=== PATIENT | male | born 1960 | race Caucasian/White ===

== ENCOUNTER 2023-05-13 08:15 | Observation (INO) | payer BC ==
[2023-05-07 09:49] LABS: Absolute Lymphocytes (CBC) 1.4 K/uL (0.7-4.9); Hematocrit 39.6 % (39.6-49.0); Lymphocytes % 18.3 % (15.3-44.8); MCV 90.1 fL (80-100); MPV 9.1 fL (7.6-11.3); Platelets 242 thou/uL (152-406)
[2023-05-07 10:03] LABS: Protime INR 0.94
--- NOTE | 2023-05-07 10:06 | RAD REPORT ---
EXAM DESCRIPTION: RAD - Chest Pa And Lat (2 Views) - 05/07/2023 9:54 am CLINICAL HISTORY: pre op for surgery. Hypertension COMPARISON: No comparisons TECHNIQUE: PA and lateral views of the chest were obtained. FINDINGS: The lungs are clear. Heart size is normal and central vasculature is within normal limits. No pleural effusion or pneumothorax seen. No acute bony finding noted. IMPRESSION: No acute cardiopulmonary process.
[2023-05-07 10:23] LABS: Potassium 3.9 mEq/L (3.5-5.1)
--- NOTE | 2023-05-07 12:27 | EKG ---
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
[2023-05-13] MEDS ORDERED: NA CHLORIDE 0.9% 1,000 ML ONE (08:48)
[2023-05-13] MEDS ORDERED: CEFAZOLIN SODIUM 2 GM/VIAL ONE (08:48)
[2023-05-13] MEDS ORDERED: CELECOXIB 100 MG CAPSULE ONE (09:09)
[2023-05-13] MEDS ORDERED: Oxycodone HCl/Acetaminophen 5/325 MG TAB ONE (09:10)
[2023-05-13] MEDS ORDERED: GABAPENTIN 100 MG CAP ONE (09:10)
[2023-05-13] MEDS ORDERED: ACETAMINOPHEN 500 MG TAB ONE (09:11)
[2023-05-13] MEDS ORDERED: LIDOCAINE 1% MPF 5 ML VIAL ONE (09:56)
[2023-05-13] MEDS ORDERED: MAGNESIUM SULFATE 1 gm IVPB 1 GM/100 ML BAG IV ONE (09:57)
[2023-05-13] MEDS ORDERED: MIDAZOLAM HCL 2 MG/2 ML INJ ONE (09:57)
[2023-05-13] MEDS ORDERED: FENTANYL CITR 100 MCG/2 ML ONE (09:57)
[2023-05-13] MEDS ORDERED: dexAMETHasone 10 MG/ML VIAL ONE (09:57)
[2023-05-13] MEDS ORDERED: BUPIVACAINE 0.25% PF 30 ML VIAL ONE (09:57)
[2023-05-13] MEDS ORDERED: DEXMEDETOMIDINE HCL 200 MCG/2 ML VIAL ONE (09:57)
[2023-05-13] MEDS ORDERED: EPINEPHRINE/PF 1 MG/ML AMP ONE (09:57)
[2023-05-13] MEDS ORDERED: LIDOCAINE 2% MPF 5 ML VIAL ONE (10:53)
[2023-05-13] MEDS ORDERED: KETAMINE HCL IN 0.9 % NACL 50 MG/5 ML SYRINGE IV ONE (10:53)
[2023-05-13] MEDS ORDERED: propofoL 200 MG/20 ML VIAL IV ONE (10:53)
[2023-05-13] MEDS ORDERED: TRANEXAMIC ACID 1,000 MG/10 ML VIAL IV ONE (10:54)
[2023-05-13] MEDS ORDERED: ONDANSETRON 4 MG/2 ML VIAL ONE (10:55)
[2023-05-13] MEDS ORDERED: EPHEDRINE SULF 50 MG/ML VIAL ONE (11:40)
[2023-05-13] MEDS ORDERED: Ringers Lactate 1,000 ML IV ONE (13:24)
--- NOTE | 2023-05-13 13:53 | P.BOP ---
Preoperative diagnosis: left knee osteoarthritis Postoperative diagnosis: same Primary procedure: left total knee arthroplasty Certified Alcohol And Drug Counselor: NONE,NONE Estimated blood loss: 40 cc Specimen: left knee bone remnants Findings: see dictation Anesthesia: General Complications: None Implants: [employer] Carmen Persona 10 CR femur, G tibia, 38 patella, 10 CR poly Fluids & blood products: per anesthesia record Transferred to: Recovery Room Condition: Good
[2023-05-13] MEDS ORDERED: ONDANSETRON 4 MG/2 ML VIAL IV PRN (13:54)
[2023-05-13] MEDS ORDERED: ACETAMINOPHEN 325 MG TABLET PO PRN (13:54)
[2023-05-13] MEDS ORDERED: DOCUSATE NA 100 MG CAP PO PRN (13:54)
[2023-05-13] MEDS ORDERED: TRAMADOL HCL 50 MG TAB PO PRN (13:58)
[2023-05-13] MEDS: HYDROMORPHONE HCL 1 MG/ML INJ ONE ×2 (14:20→14:34)
[2023-05-13 14:41] LABS: Hematocrit 36.3 % (39.6-49.0)
--- OUTSIDE RECORDS SUMMARY | 2023-05-13 15:13 | XMS REPORT | Continuity of Care Document ---
:1960 Author Organization [facility] t Address [address] [facility] [address] [place] [address] Care Team Providers Name Role Phone Susan John Primary Care Physician DUYEN STUBBS Attending Clinician Unavailable Enoc BALDWIN, Duyen GuillenHDipak Attending Clinician Doctor Unassigned, [place] Attending Clinician Unavailable ANNAMARIA BATISTA Attending Clinician Unavailable Payers Payer Name Policy Type Policy Number Effective Date Expiration Date S javiernunu [employer] [place] [id number] 2019 00:00:00 [employer] and C1 [id number] Common S pirit [facility] Problems Condition Condition Condition Status Onset Resolution Last Treating Co mments Source Name Details Category Date Date Treatment Clinician Date Essential Essential Disease Active 2022-0 Uni vers hypertensi hypertensi 2-18 [place] [address] [place] [address] Dyslipidem Dyslipidem Disease Active U nivers ia ia 2-18 ity of 00:00: [address] [id number] Primary Problem Active Comm on osteoarthr Spirit itis of - [facility] left knee [facility] Allergies, Adverse Reactions, Alerts Allergy Allergy Status Severity Reaction(s) Onset Inactive Treating Comm ents Source Name Type Date Date Clinician NO KNOWN Drug Active Univers ALLERGIE Class ity of S [facility] Social History Social Habit Start Date Stop Date Quantity Comments Source Gender identity Universit y [facility] Sexual orientation Univer sity [facility] Sex Assigned At Common Sp renuka - [facility] History of Tobacco Never Smoker Comm on Spirit - Use [facility] Exposure to 2022-09-20 2022-09-30 Not sure University SARS-CoV-2 (event) 00:00:00 09:15:00 [facility] History of Social 2022-09-30 2022-09-30 Univers ity of function 00:00:00 00:00:00 [facility] Tobacco use and 2022-09-30 2022-09-30 Smokeless Universit y of exposure 00:00:00 00:00:00 tobacco non-user [facility] Smoking Status Start Date Stop Date Source Never smoked tobacco [facility] Medications Ordered Filled Start Stop Current Ordering Indication Dosage Frequency Signature Comments Components Source Medication Medication Date Date Medication? Clinician (SIG) Name Name regadenoson 2022- No [id number] .4mg 0.4 mg, IV Univers (LEXISCAN) 01-29 Push, ity of injection 15:15: 14:46 ONCE, 1 [place] 0.4 mg 00 :00 dose, On Medical Coco 01/29/23 Branch at 1015, Routine
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 Restricted medication : DUYEN STUBBS tc 2022- No [id number] 42.4mCi 42.4 [facility] 99m-tetrofo 01-29 millicurie i ty of smin 14:50: 14:50 , [place] (MYOVIEW) 00 :00 Intravenou Medi sunshine injection s, ONCE, 1 Bran ch 42.4 dose, On millicurie Coco 01/29/23 at 1000, Routine tc 3-0 3- No [id number] 15.6mCi 15.6 Univ s 99m-tetrofo 01-29 millicurie i ty of [facility] 13:45: 13:45 , [place] (MYOVIEW) 00 :00 Intravenou Medi sunshine injection s, ONCE, 1 Bran ch 15.6 dose, On millicurie Coco 01/29/23 at 0900, Routine lisinopriL 2023-0 Yes [id number] 40mg Take 1 Univers 40 mg 3-08 tablet by ity of tablet 00:00: mouth in [place] 00 the Medical morning. Branch lisinopriL 2023-0 Yes [id number] 40mg Take 1 Univers 40 mg 3-08 tablet by ity of tablet 00:00: mouth in [place] 00 the Medical morning. Branch lisinopriL 2023-0 Yes [id number] 40mg Take 1 Univers 40 mg 3-08 tablet by ity of tablet 00:00: mouth in [place] 00 the Medical morning. Branch lisinopriL 2023-0 Yes [id number] 40mg Take 1 Univers 40 mg 3-08 tablet by ity of tablet 00:00: mouth in [place] the Medical morning. Branch lisinopriL 2023-0 Yes [id number] 40mg Take 1 Univers 40 mg 3-08 tablet by ity of tablet 00:00: mouth in [place] 00 the Medical morning. Branch lisinopriL 2023-0 Yes [id number] 40mg Take 1 Univers 40 mg 3-08 tablet by ity of tablet 00:00: mouth in [place] 00 the Medical morning. Branch lisinopriL 2023-0 Yes [id number] 40mg Take 1 Univers 40 mg 3-08 tablet by ity of tablet 00:00: mouth in [place] 00 the Medical morning. Branch lisinopriL 2023-0 Yes [id number] 40mg Take 1 Univers 40 mg 3-08 tablet by ity of tablet 00:00: mouth in [place] 00 the Medical morning. Branch lisinopriL 2023-0 Yes [id number] 40mg Take 1 Univers 40 mg 3-08 tablet by ity of tablet 00:00: mouth in [place] 00 the Medical morning. Branch lisinopriL 2023-0 Yes [id number] 40mg Take 1 Univers 40 mg 3-08 tablet by ity of tablet 00:00: mouth in [place] 00 the Medical morning. Branch lisinopriL 2023-0 Yes [id number] 40mg Take 1 Univers 40 mg 3-08 tablet by ity of tablet 00:00: mouth in [place] 00 the Medical morning. Branch meloxicam 2023-0 Yes 7.5mg Take 1 Unive rs (MOBIC) 7.5 3-07 tablet by ity of mg tablet 10:07: mouth in [place] [address] the Medical morning. Branch meloxicam 2023-0 Yes 7.5mg Take 1 Unive rs (MOBIC) 7.5 3-07 tablet by ity of mg tablet 10:07: mouth in [place] [address] the Medical morning. Branch meloxicam 2023-0 Yes 7.5mg Take 1 Unive rs (MOBIC) 7.5 3-07 tablet by ity of mg tablet 10:07: mouth in [place] [address] the Medical morning. Branch meloxicam 2023-0 Yes 7.5mg Take 1 Unive rs (MOBIC) 7.5 3-07 tablet by ity of mg tablet 10:07: mouth in [place] [address] the Medical morning. Branch meloxicam 2023-0 Yes 7.5mg Take 1 Unive rs (MOBIC) 7.5 3-07 tablet by ity of mg tablet 10:07: mouth in [place] [address] the Medical morning. Branch meloxicam 2023-0 Yes 7.5mg Take 1 Unive rs (MOBIC) 7.5 3-07 tablet by ity of mg tablet 10:07: mouth in [place] [address] the Medical morning. Branch meloxicam 2023-0 Yes 7.5mg Take 1 Unive rs (MOBIC) 7.5 3-07 tablet by ity of mg tablet 10:07: mouth in [place] [address] the Medical morning. Branch meloxicam 2023-0 Yes 7.5mg Take 1 Unive rs (MOBIC) 7.5 3-07 tablet by ity of mg tablet 10:07: mouth in [place] [address] the Medical morning. Branch meloxicam 2023-0 Yes 7.5mg Take 1 Unive rs (MOBIC) 7.5 3-07 tablet by ity of mg tablet 10:07: mouth in [place] [address] the Medical morning. Branch meloxicam 2023-0 Yes 7.5mg Take 1 Unive rs (MOBIC) 7.5 3-07 tablet by ity of mg tablet 10:07: mouth in [place] [address] the Medical morning. Branch meloxicam 2023-0 Yes 7.5mg Take 1 Unive rs (MOBIC) 7.5 3-07 tablet by ity of mg tablet 10:07: mouth in [place] [address] the Medical morning. Branch meloxicam 2023-0 Yes 7.5mg Take 1 Unive rs (MOBIC) 7.5 3-07 tablet by ity of mg tablet 10:07: mouth in [place] [address] the Medical morning. Branch meloxicam 2023-0 Yes 7.5mg Take 1 Unive rs (MOBIC) 7.5 3-07 tablet by ity of mg tablet 10:07: mouth in [place] [address] the Medical morning. Branch meloxicam 2023-0 Yes 7.5mg Take 1 Unive rs (MOBIC) 7.5 3-07 tablet by ity of mg tablet 10:07: mouth in [place] [address] the Medical morning. Branch metFORMIN 2023-0 Yes 500mg Take 500 Uni vers 500 mg 3-07 mg by ity of tablet 09:58: mouth 2 [place] [address] (two) Medical times Branch daily with meals. metFORMIN 2023-0 Yes 500mg Take 500 Uni vers 500 mg 3-07 mg by ity of tablet 09:58: mouth 2 [place] [address] (two) Medical times Branch daily with meals. metFORMIN 2023-0 Yes 500mg Take 500 Uni vers 500 mg 3-07 mg by ity of tablet 09:58: mouth 2 [place] [address] (two) Medical times Branch daily with meals. metFORMIN 2023-0 Yes 500mg Take 500 Uni vers 500 mg 3-07 mg by ity of tablet 09:58: mouth 2 [place] [address] (two) Medical times Branch daily with meals. metFORMIN 2023-0 Yes 500mg Take 500 Uni vers 500 mg 3-07 mg by ity of tablet 09:58: mouth 2 [place] 48 (two) Medical times Branch daily with meals. metFORMIN 2023-0 Yes 500mg Take 500 Uni vers 500 mg 3-07 mg by ity of tablet 09:58: mouth 2 [place] [address] (two) Medical times Branch daily with meals. metFORMIN 2023-0 Yes 500mg Take 500 Uni vers 500 mg 3-07 mg by ity of tablet 09:58: mouth 2 [place] [address] (two) Medical times Branch daily with meals. metFORMIN 2023-0 Yes 500mg Take 500 Uni vers 500 mg 3-07 mg by ity of tablet 09:58: mouth 2 [place] [address] (two) Medical times Branch daily with meals. metFORMIN 2023-0 Yes 500mg Take 500 Uni vers 500 mg 3-07 mg by ity of tablet 09:58: mouth 2 [place] [address] (two) Medical times Branch daily with meals. metFORMIN 2023-0 Yes 500mg Take 500 Uni vers 500 mg 3-07 mg by ity of tablet 09:58: mouth 2 [place] [address] (two) Medical times Branch daily with meals. metFORMIN 2023-0 Yes 500mg Take 500 Uni vers 500 mg 3-07 mg by ity of tablet 09:58: mouth 2 [place] [address] (two) Medical times Branch daily with meals. metFORMIN 2023-0 Yes 500mg Take 500 Uni vers 500 mg 3-07 mg by ity of tablet 09:58: mouth 2 [place] [address] (two) Medical times Branch daily with meals. metFORMIN 2023-0 Yes 500mg Take 500 Uni vers 500 mg 3-07 mg by ity of tablet 09:58: mouth 2 [place] [address] (two) Medical times Branch daily with meals. metFORMIN 2023-0 Yes 500mg Take 500 Uni vers 500 mg 3-07 mg by ity of tablet 09:58: mouth 2 [place] [address] (two) Medical times Branch daily with meals. atorvastati 2023-0 Yes 10mg Take 10 mg Univers n 10 mg 3-07 by mouth ity of tablet 09:39: at [place] [address] bedtime. Medical Branch atorvastati 2023-0 Yes 10mg Take 10 mg Univers n 10 mg 3-07 by mouth ity of tablet 09:39: at [place] [address] bedtime. Medical Branch atorvastati 2023-0 Yes 10mg Take 10 mg Univers n 10 mg 3-07 by mouth ity of tablet 09:39: at [place] [address] bedtime. Medical Branch atorvastati 2023-0 Yes 10mg Take 10 mg Univers n 10 mg 3-07 by mouth ity of tablet 09:39: at [place] [address] bedtime. Medical Branch atorvastati 3-0 Yes 10mg Take 10 mg Univers n 10 mg 3-07 by mouth ity of tablet 09:39: at [place] [address] bedtime. Medical Branch atorvastati 3-0 Yes 10mg Take 10 mg Univers n 10 mg 3-07 by mouth ity of tablet 09:39: at [place] [address] bedtime. Medical Branch atorvastati 3-0 Yes 10mg Take 10 mg Univers n 10 mg 3-07 by mouth ity of tablet 09:39: at [place] [address] bedtime. Medical Branch atorvastati 3-0 Yes 10mg Take 10 mg Univers n 10 mg 3-07 by mouth ity of tablet 09:39: at [place] [address] bedtime. Medical Branch atorvastati 3-0 Yes 10mg Take 10 mg Univers n 10 mg 3-07 by mouth ity of tablet 09:39: at [place] [address] bedtime. Medical Branch atorvastati 3-0 Yes 10mg Take 10 mg Univers n 10 mg 3-07 by mouth ity of tablet 09:39: at [place] [address] bedtime. Medical Branch atorvastati 3-0 Yes 10mg Take 10 mg Univers n 10 mg 3-07 by mouth ity of tablet 09:39: at [place] [address] bedtime. Medical Branch atorvastati 3-0 Yes 10mg Take 10 mg Univers n 10 mg 3-07 by mouth ity of tablet 09:39: at [place] [address] bedtime. Medical Branch atorvastati 3-0 Yes 10mg Take 10 mg Univers n 10 mg 3-07 by mouth ity of tablet 09:39: at [place] [address] bedtime. Medical Branch atorvastati 3-0 Yes 10mg Take 10 mg Univers n 10 mg 3-07 by mouth ity of tablet 09:39: at [place] [address] bedtime. Medical Branch aspirin 2023-0 Yes 81mg Take 81 mg Univ ers (ADULT LOW 3-07 by mouth ity o f DOSE 09:39: daily. [place] ASPIRIN) 81 19 Medical mg EC Branch tablet aspirin 3-0 Yes 81mg Take 81 mg Univ ers (ADULT LOW 3-07 by mouth ity o f DOSE 09:39: daily. [place] ASPIRIN) 81 19 Medical mg EC Branch tablet aspirin 3-0 Yes 81mg Take 81 mg Univ ers (ADULT LOW 3-07 by mouth ity o f DOSE 09:39: daily. [place] ASPIRIN) 81 19 Medical mg EC Branch tablet aspirin 2023-0 Yes 81mg Take 81 mg Univ ers (ADULT LOW 3-07 by mouth ity o f DOSE 09:39: daily. [place] ASPIRIN) 81 19 Medical mg EC Branch tablet aspirin 2023-0 Yes 81mg Take 81 mg Univ ers (ADULT LOW 3-07 by mouth ity o f DOSE 09:39: daily. [place] ASPIRIN) 81 19 Medical mg EC Branch tablet aspirin 2023-0 Yes 81mg Take 81 mg Univ ers (ADULT LOW 3-07 by mouth ity o f DOSE 09:39: daily. [place] ASPIRIN) 81 19 Medical mg EC Branch tablet aspirin 2023-0 Yes 81mg Take 81 mg Univ ers (ADULT LOW 3-07 by mouth ity o f DOSE 09:39: daily. [place] ASPIRIN) 81 19 Medical mg EC Branch tablet aspirin 2023-0 Yes 81mg Take 81 mg Univ ers (ADULT LOW 3-07 by mouth ity o f DOSE 09:39: daily. [place] ASPIRIN) 81 19 Medical mg EC Branch tablet aspirin 2023-0 Yes 81mg Take 81 mg Univ ers (ADULT LOW 3-07 by mouth ity o f DOSE 09:39: daily. [place] ASPIRIN) 81 19 Medical mg EC Branch tablet aspirin 2023-0 Yes 81mg Take 81 mg Univ ers (ADULT LOW 3-07 by mouth ity o f DOSE 09:39: daily. [place] ASPIRIN) 81 19 Medical mg EC Branch tablet aspirin 2023-0 Yes 81mg Take 81 mg Univ ers (ADULT LOW 3-07 by mouth ity o f DOSE 09:39: daily. [place] ASPIRIN) 81 19 Medical mg EC Branch tablet aspirin 2023-0 Yes 81mg Take 81 mg Univ ers (ADULT LOW 3-07 by mouth ity o f DOSE 09:39: daily. [place] ASPIRIN) 81 19 Medical mg EC Branch tablet aspirin 2023-0 Yes 81mg Take 81 mg Univ ers (ADULT LOW 3-07 by mouth ity o f DOSE 09:39: daily. [place] ASPIRIN) 81 19 Medical mg EC Branch tablet aspirin 2023-0 Yes 81mg Take 81 mg Univ ers (ADULT LOW 3-07 by mouth ity o f DOSE 09:39: daily. [place] ASPIRIN) 81 19 Medical mg EC Branch tablet lisinopriL 2023-0 Yes [id number] 20mg Take 1 Univers (PRINIVIL) 3-07 tablet by ity of 20 mg 00:00: mouth in [place] tablet 00 the Medical morning Branch and 1 tablet in the evening. lisinopriL 2023-0 Yes [id number] 20mg Take 1 Univers (PRINIVIL) 3-07 tablet by ity of 20 mg 00:00: mouth in [place] tablet 00 the Medical morning Branch and 1 tablet in the evening. lisinopriL 2023-0 2023- No [id number] 20mg Take 1 Univers (PRINIVIL) 3-01 26-08 tablet by ity of 20 mg 00:00: 00:00 mouth in [place] tablet 00 :00 the Medical morning Branch and 1 tablet in the evening. lisinopriL 2023-0 2023- No [id number] 20mg Take 1 Univers (PRINIVIL) 3-01 26-08 tablet by ity of 20 mg 00:00: 00:00 mouth in [place] tablet 00 :00 the Medical morning Branch and 1 tablet in the evening. lisinopriL 2022-0 Yes [id number] 40mg Take 1 U nivers 40 mg 7-26 tablet by ity of tablet 00:00: mouth in [place] 00 the Medical morning. Branch lisinopriL 2022-0 Yes 20mg Take 1 Unive rs (PRINIVIL) 7-26 tablet by ity of 20 mg 00:00: mouth in [place] tablet 00 the Medical morning. Branch lisinopriL 2022-0 Yes 20mg Take 1 Unive rs (PRINIVIL) 7-26 tablet by ity of 20 mg 00:00: mouth in [place] tablet 00 the Medical morning. Branch lisinopriL 2022-0 Yes 20mg Take 1 Unive rs (PRINIVIL) 7-26 tablet by ity of 20 mg 00:00: mouth in [place] tablet 00 the Medical morning. Branch lisinopriL 2022-0 2023- No 20mg Take 1 Univ ers (PRINIVIL) 7- 03-07 tablet by ity of 20 mg 00:00: 00:00 mouth in [place] tablet 00 :00 the Medical morning. Branch lisinopriL 2022-0 2023- No 20mg Take 1 Univ ers (PRINIVIL) 7-26 03-07 tablet by ity of 20 mg 00:00: 00:00 mouth in [place] tablet 00 :00 the Medical morning. Branch lisinopriL 2022- No 20mg Take 1 Univ ers (PRINIVIL) 02-18- tablet by ity of 20 mg 00:00: 00:00 mouth in [place] tablet 00 :00 the Medical morning. Branch lisinopriL 2021- No [id number] 40mg Take 1 Univers 40 mg 02-18 tablet by ity of tablet 00:00: 00:00 mouth in [place] 00 :00 the Medical morning. Branch lisinopriL Yes [id number] 20mg Take 1 U nivers 20 mg - tablet by ity of tablet 00:00: mouth 2 [place] [address] (two) Medical times [place] daily. lisinopriL 2021- No [id number] 20mg Take 1 Univers 20 mg -02-18 tablet by ity of tablet 00:00: 00:00 mouth 2 [place] 00 :00 (two) Medical times [place] daily. LISINOPRIL 0 Yes [id number] TAKE 1 U nivers 20 mg - TABLET BY ity of tablet 00:00: MOUTH [place] [address] TWICE A Medical DAY Branch LISINOPRIL 2021- No [id number] TAKE 1 Univers 20 mg 4-14 11- TABLET BY ity of tablet 00:00: 00:00 MOUTH [place] 00 :00 TWICE A Medical DAY Branch SERTraline 0 Yes 50mg Take 50 mg U nivers 50 mg 3-07 by mouth ity of tablet 09:29: daily. [address] montelukast 2021-0 Yes 10mg Take 10 mg Univers 10 mg 3-07 by mouth ity of tablet 09:29: daily. [address] Branch busPIRone 0 Yes 10mg Take 10 mg Un jose carlos 10 mg 3-07 by mouth ity of tablet 09:29: as needed. [address] Branch levothyroxi 0 Yes 100ug Take 100 U nivers ne 100 mcg 3-07 mcg by ity of tablet 09:29: mouth [place] [address] daily. Medical Branch metFORMIN 2021-0 Yes 500mg Take 500 Uni vers 500 mg 3-07 mg by ity of tablet 09:29: mouth 2 [place] [address] (two) Medical times [place] daily with meals. aspirin 2022-0 Yes 81mg Take 81 mg Univ ers (ADULT LOW 3-07 by mouth ity o f DOSE 09:29: daily. [place] ASPIRIN) 81 11 Medical mg EC Branch tablet mv-mn/iron/ Yes 50ug Take 50 Uni vers folic 3-07 mcg by ity of acid/herb 09:29: mouth 2 [place] [address] (two) Medical (VITAMIN D3 times Branch COMPLETE daily. ORAL) multivit Yes Take by Univer s with 3-07 mouth ity of minerals/deborah 09:29: daily. [place] 11 Medical (MULTIVITAM Branch IN 50 PLUS ORAL) gluc Yes Take by [facility] villareal/chondro 3-07 mouth 2 ity of villareal A/vit 09:29: (two) [place] C/Mn 11 times Medical (GLUCOSAMIN daily. Branch E 1500 COMPLEX ORAL) SERTraline Yes 50mg Take 50 mg U nivers 50 mg 3-07 by mouth ity of tablet 09:29: daily. [address] Branch montelukast Yes 10mg Take 10 mg Univers 10 mg 3-07 by mouth ity of tablet 09:29: daily. [address] Branch busPIRone Yes 10mg Take 10 mg Un jose carlos 10 mg 3-07 by mouth ity of tablet 09:29: as needed. [place] [address] Medical Branch levothyroxi Yes 100ug Take 100 U nivers ne 100 mcg 3-07 mcg by ity of tablet 09:29: mouth [place] [address] daily. Medical Branch metFORMIN Yes 500mg Take 500 Uni vers 500 mg 3-07 mg by ity of tablet 09:29: mouth 2 [place] 11 (two) Medical times Branch daily with meals. aspirin Yes 81mg Take 81 mg Univ ers (ADULT LOW 3-07 by mouth ity o f DOSE 09:29: daily. [place] ASPIRIN) 81 11 Medical mg EC Branch tablet mv-mn/iron/ Yes 50ug Take 50 Uni vers folic 3-07 mcg by ity of acid/herb 09:29: mouth 2 [place] [address] (two) Medical (VITAMIN D3 times Branch COMPLETE daily. ORAL) multivit 0 Yes Take by Univer s with 3-07 mouth ity of minerals/deborah 09:29: daily. [place] 11 Medical (MULTIVITAM Branch IN 50 PLUS ORAL) gluc 0 Yes Take by Univers villareal/chondro 3-07 mouth 2 ity of villareal A/vit 09:29: (two) [place] C/Mn 11 times Medical (GLUCOSAMIN daily. Branch E 1500 COMPLEX ORAL) SERTraline 0 Yes 50mg Take 50 mg U nivers 50 mg 3-07 by mouth ity of tablet 09:29: daily. [place] [address] Medical Branch montelukast 0 Yes 10mg Take 10 mg Univers 10 mg 3-07 by mouth ity of tablet 09:29: daily. [place] [address] Medical Branch busPIRone 0 Yes 10mg Take 10 mg Un jose carlos 10 mg 3-07 by mouth ity of tablet 09:29: as needed. [place] [address] Medical Branch levothyroxi 0 Yes 100ug Take 100 U nivers ne 100 mcg 3-07 mcg by ity of tablet 09:29: mouth [place] [address] daily. Medical Branch metFORMIN 0 Yes 500mg Take 500 Uni vers 500 mg 3-07 mg by ity of tablet 09:29: mouth 2 [place] [address] (two) Medical times Branch daily with meals. aspirin 0 Yes 81mg Take 81 mg Univ ers (ADULT LOW 3-07 by mouth ity o f DOSE 09:29: daily. [place] ASPIRIN) 81 11 Medical mg EC Branch tablet mv-mn/iron/ Yes 50ug Take 50 Uni vers folic 3-07 mcg by ity of acid/herb 09:29: mouth 2 [place] [address] (two) Medical (VITAMIN D3 times Branch COMPLETE daily. ORAL) multivit 0 Yes Take by Univer s with 3-07 mouth ity of minerals/deborah 09:29: [facility] Medical (MULTIVITAM Branch IN 50 PLUS ORAL) gluc 0 Yes Take by Univers villareal/chondro 3-07 mouth 2 ity of villareal A/vit 09:29: (two) [place] C/Mn 11 times Medical (GLUCOSAMIN daily. Branch E 1500 COMPLEX ORAL) SERTraline 0 Yes 50mg Take 50 mg U nivers 50 mg 3-07 by mouth ity of tablet 09:29: daily. [place] [address] Medical Branch montelukast 0 Yes 10mg Take 10 mg Univers 10 mg 3-07 by mouth ity of tablet 09:29: daily. [place] [address] Medical Branch busPIRone 0 Yes 10mg Take 10 mg Un jose carlos 10 mg 3-07 by mouth ity of tablet 09:29: as needed. [place] [address] Medical Branch levothyroxi 0 Yes 100ug Take 100 U nivers ne 100 mcg 3-07 mcg by ity of tablet 09:29: mouth [place] [address] daily. Medical Branch metFORMIN 0 Yes 500mg Take 500 Uni vers 500 mg 3-07 mg by ity of tablet 09:29: mouth 2 [place] 11 (two) Medical times Branch daily with meals. aspirin 0 Yes 81mg Take 81 mg Univ ers (ADULT LOW 3-07 by mouth ity o f DOSE 09:29: daily. [place] ASPIRIN) 81 11 Medical mg EC Branch tablet mv-mn/iron/ Yes 50ug Take 50 Uni vers folic 3-07 mcg by ity of acid/herb 09:29: mouth 2 [place] [address] (two) Medical (VITAMIN D3 times Branch COMPLETE daily. ORAL) multivit Yes Take by Univer s with 3-07 mouth ity of minerals/deborah 09:29: [facility]. [facility] Medical (MULTIVITAM Branch IN 50 PLUS ORAL) gluc Yes Take by Univers villareal/chondro 3-07 mouth 2 ity of villareal A/vit 09:29: (two) [place] C/Mn 11 times Medical (GLUCOSAMIN daily. Branch E 1500 COMPLEX ORAL) SERTraline 0 Yes 50mg Take 50 mg U nivers 50 mg 3-07 by mouth ity of tablet 09:29: daily. [place] [address] Medical Branch montelukast Yes 10mg Take 10 mg Univers 10 mg 3-07 by mouth ity of tablet 09:29: daily. [place] [address] Medical Branch busPIRone 0 Yes 10mg Take 10 mg Un jose carlos 10 mg 3-07 by mouth ity of tablet 09:29: as needed. [place] [address] Medical Branch levothyroxi 0 Yes 100ug Take 100 U nivers ne 100 mcg 3-07 mcg by ity of tablet 09:29: mouth [place] [address] daily. Medical Branch metFORMIN 0 Yes 500mg Take 500 Uni vers 500 mg 3-07 mg by ity of tablet 09:29: mouth 2 [place] 11 (two) Medical times Branch daily with meals. aspirin 0 Yes 81mg Take 81 mg Univ ers (ADULT LOW 3-07 by mouth ity o f DOSE 09:29: daily. [place] ASPIRIN) 81 11 Medical mg EC Branch tablet mv-mn/iron/ Yes 50ug Take 50 Uni vers folic 3-07 mcg by ity of acid/herb 09:29: mouth 2 [place] [address] (two) Medical (VITAMIN D3 times Branch COMPLETE daily. ORAL) multivit 0 Yes Take by Univer s with 3-07 mouth ity of minerals/deborah 09:29: [facility]. [facility] Medical (MULTIVITAM Branch IN 50 PLUS ORAL) gluc Yes Take by Univers villareal/chondro 3-07 mouth 2 ity of villareal A/vit 09:29: (two) [place] C/Mn 11 times Medical (GLUCOSAMIN daily. Branch E 1500 COMPLEX ORAL) SERTraline 0 Yes 50mg Take 50 mg U nivers 50 mg 3-07 by mouth ity of tablet 09:29: daily. [place] [address] Medical Branch montelukast Yes 10mg Take 10 mg Univers 10 mg 3-07 by mouth ity of tablet 09:29: daily. [place] [address] Medical Branch busPIRone 0 Yes 10mg Take 10 mg Un jose carlos 10 mg 3-07 by mouth ity of tablet 09:29: as needed. [place] [address] Medical Branch levothyroxi Yes 100ug Take 100 U nivers ne 100 mcg 3-07 mcg by ity of tablet 09:29: mouth [place] [address] daily. Medical Branch metFORMIN 0 Yes 500mg Take 500 Uni vers 500 mg 3-07 mg by ity of tablet 09:29: mouth 2 [place] 11 (two) Medical times Branch daily with meals. aspirin 0 Yes 81mg Take 81 mg Univ ers (ADULT LOW 3-07 by mouth ity o f DOSE 09:29: daily. [place] ASPIRIN) 81 11 Medical mg EC Branch tablet mv-mn/iron/ 0 Yes 50ug Take 50 Uni vers folic 3-07 mcg by ity of acid/herb 09:29: mouth 2 [place] [address] (two) Medical (VITAMIN D3 times Branch COMPLETE daily. ORAL) multivit 2022-0 Yes Take by Univer s with 3-07 mouth ity of minerals/deborah 09:29: daily. [place] 11 Medical (MULTIVITAM Branch IN 50 PLUS ORAL) gluc 0 Yes Take by Univers villareal/chondro 3-07 mouth 2 ity of villareal A/vit 09:29: (two) [place] C/Mn 11 times Medical (GLUCOSAMIN daily. Branch E 1500 COMPLEX ORAL) SERTraline 0 Yes 50mg Take 50 mg U nivers 50 mg 3-07 by mouth ity of tablet 09:29: daily. [place] [address] Medical Branch montelukast 0 Yes 10mg Take 10 mg Univers 10 mg 3-07 by mouth ity of tablet 09:29: daily. [place] [address] Medical Branch busPIRone 0 Yes 10mg Take 10 mg Un jose carlos 10 mg 3-07 by mouth ity of tablet 09:29: as needed. [place] [address] Medical Branch levothyroxi Yes 100ug Take 100 U nivers ne 100 mcg 3-07 mcg by ity of tablet 09:29: mouth [place] [address] daily. Medical Branch metFORMIN 0 Yes 500mg Take 500 Uni vers 500 mg 3-07 mg by ity of tablet 09:29: mouth 2 [place] [address] (two) Medical times Branch daily with meals. aspirin 0 Yes 81mg Take 81 mg Univ ers (ADULT LOW 3-07 by mouth ity o f DOSE 09:29: daily. [place] ASPIRIN) 81 11 Medical mg EC Branch tablet mv-mn/iron/ Yes 50ug Take 50 Uni vers folic 3-07 mcg by ity of acid/herb 09:29: mouth 2 [place] [id number] 11 (two) Medical (VITAMIN D3 times Branch COMPLETE daily. ORAL) multivit 0 Yes Take by [facility] rs with 3-07 mouth ity of minerals/deborah 09:29: daily. [facility]go s xuanin 11 Medical (MULTIVITAM Branch IN 50 PLUS ORAL) gluc 0 Yes Take by [facility] villareal/chondro 3-07 mouth 2 ity of villareal A/vit 09:29: (two) [place] C/Mn 11 times Medical (GLUCOSAMIN daily. Branch E 1500 COMPLEX ORAL) SERTraline 2021-0 Yes 50mg Take 50 mg U nivers 50 mg 3-07 by mouth ity of tablet 09:29: daily. [address] Branch montelukast Yes 10mg Take 10 mg Univers 10 mg 3-07 by mouth ity of tablet 09:29: daily. [address] Branch busPIRone 0 Yes 10mg Take 10 mg Un jose carlos 10 mg 3-07 by mouth ity of tablet 09:29: as needed. [address] Branch levothyroxi 0 Yes 100ug Take 100 U nivers ne 100 mcg 3-07 mcg by ity of tablet 09:29: mouth [place] [address] daily. Medical Branch mv-mn/iron/ 0 Yes 50ug Take 50 Uni vers folic 3-07 mcg by ity of acid/herb 09:29: mouth 2 [place] [address] 11 (two) Medical (VITAMIN D3 times Branch COMPLETE daily. ORAL) multivit 0 Yes Take by [facility] with 3-07 mouth ity of minerals/deborah 09:29: daily. [facility] (MULTIVIT[facility] Branch IN 50 PLUS ORAL) gluc Yes Take by [facility] villareal/chondro 3-07 mouth 2 ity of villareal A/vit 09:29: (two) [place] C/Mn 11 times Medical (GLUCOSAMIN daily. Branch E 1500 COMPLEX ORAL) SERTraline 0 Yes 50mg Take 50 mg U nivers 50 mg 3-07 by mouth ity of tablet 09:29: daily. [address] Branch montelukast Yes 10mg Take 10 mg Univers 10 mg 3-07 by mouth ity of tablet 09:29: daily. [address] Branch busPIRone 0 Yes 10mg Take 10 mg Un jose carlos 10 mg 3-07 by mouth ity of tablet 09:29: as needed. [address] Branch levothyroxi 0 Yes 100ug Take 100 U nivers ne 100 mcg 3-07 mcg by ity of tablet 09:29: mouth [place] [address] daily. Medical Branch mv-mn/iron/ 0 Yes 50ug Take 50 Uni vers folic 3-07 mcg by ity of acid/herb 09:29: mouth 2 [place] 190 11 (two) Medical (VITAMIN D3 times Branch COMPLETE daily. ORAL) multivit 0 Yes Take by Univer s with 3-07 mouth ity of minerals/deborah 09:29: daily. [facility] trotter 11 Medical (MULTIVITAM Branch IN 50 PLUS ORAL) gluc 2021-0 Yes Take by [facility] villareal/chondro 3-07 mouth 2 ity of villareal A/vit 09:29: (two) [place] C/Mn 11 times Medical (GLUCOSAMIN daily. Branch E 1500 COMPLEX ORAL) SERTraline 2021-0 Yes 50mg Take 50 mg U nivers 50 mg 3-07 by mouth ity of tablet 09:29: daily. [address] Branch montelukast 2021-0 Yes 10mg Take 10 mg Univers 10 mg 3-07 by mouth ity of tablet 09:29: daily. [address] Branch busPIRone 2021-0 Yes 10mg Take 10 mg Un jose carlos 10 mg 3-07 by mouth ity of tablet 09:29: as needed. [address] Branch levothyroxi 0 Yes 100ug Take 100 U nivers ne 100 mcg 3-07 mcg by ity of tablet 09:29: mouth [place] [address] daily. Medical Branch mv-mn/iron/ 2021-0 Yes 50ug Take 50 Uni vers folic 3-07 mcg by ity of acid/herb 09:29: mouth 2 [place] [address] 11 (two) Medical (VITAMIN D3 times Branch COMPLETE daily. ORAL) multivit 2021-[facility]/deborah 09:29: daily. [facility] [place] 11 Medical (MULTIVITAM Branch IN 50 PLUS ORAL) gluc 2021-0 Yes Take by [facility] villareal/chondro 3-07 mouth 2 ity of villareal A/vit 09:29: (two) [place] C/Mn 11 times Medical (GLUCOSAMIN daily. Branch E 1500 COMPLEX ORAL) SERTraline 2021-0 Yes 50mg Take 50 mg U nivers 50 mg 3-07 by mouth ity of tablet 09:29: daily. [address] Branch montelukast 2021-0 Yes 10mg Take 10 mg Univers 10 mg 3-07 by mouth ity of tablet 09:29: daily. [address] Branch busPIRone 2021-0 Yes 10mg Take 10 mg Un jose carlos 10 mg 3-07 by mouth ity of tablet 09:29: as needed. [address] Branch levothyroxi 2021-0 Yes 100ug Take 100 U nivers ne 100 mcg 3-07 mcg by ity of tablet 09:29: mouth [place] [address] daily. Medical Branch mv-mn/iron/ 0 Yes 50ug Take 50 Uni vers folic 3-07 mcg by ity of acid/herb 09:29: mouth 2 [place] 190 [address] (two) Medical (VITAMIN D3 times Branch COMPLETE daily. ORAL) multivit 2021-0 Yes Take by Univer s with 3-07 mouth ity of minerals/deborah 09:29: daily. Ugo goveain 11 Medical (MULTIVITAM Branch IN 50 PLUS ORAL) gluc 2021-0 Yes Take by [facility] villareal/chondro 3-07 mouth 2 ity of villareal A/vit 09:29: (two) [place] C/Mn 11 times Medical (GLUCOSAMIN daily. Branch E 1500 COMPLEX ORAL) SERTraline 0 Yes 50mg Take 50 mg U nivers 50 mg 3-07 by mouth ity of tablet 09:29: daily. [address] Branch montelukast 0 Yes 10mg Take 10 mg Univers 10 mg 3-07 by mouth ity of tablet 09:29: daily. [place] [address] Medical Branch busPIRone 0 Yes 10mg Take 10 mg Un jose carlos 10 mg 3-07 by mouth ity of tablet 09:29: as needed. [place] [address] Medical Branch levothyroxi 0 Yes 100ug Take 100 U nivers ne 100 mcg 3-07 mcg by ity of tablet 09:29: mouth [place] [address] daily. Medical Branch mv-mn/iron/ 0 Yes 50ug Take 50 Uni vers folic 3-07 mcg by ity of acid/herb 09:29: mouth 2 [place] 190 [address] (two) Medical (VITAMIN D3 times Branch COMPLETE daily. ORAL) multivit 0 [facility] ity of minerals/deborah 09:29: daily. [facility] goveain 11 Medical (MULTIVITAM Branch IN 50 PLUS ORAL) gluc 2021-0 Yes Take by Univers villareal/chondro 3-07 mouth 2 ity of villareal A/vit 09:29: (two) [place] C/Mn 11 times Medical (GLUCOSAMIN daily. Branch E 1500 COMPLEX ORAL) SERTraline 2021-0 Yes 50mg Take 50 mg U nivers 50 mg 3-07 by mouth ity of tablet 09:29: daily. [place] [address] Medical Branch montelukast Yes 10mg Take 10 mg Univers 10 mg 3-07 by mouth ity of tablet 09:29: daily. [address] Branch busPIRone 0 Yes 10mg Take 10 mg Un jose carlos 10 mg 3-07 by mouth ity of tablet 09:29: as needed. [place] [address] Medical Branch levothyroxi Yes 100ug Take 100 U nivers ne 100 mcg 3-07 mcg by ity of tablet 09:29: mouth daily. Medical Branch mv-mn/iron/ 0 Yes 50ug Take 50 Uni vers folic 3-07 mcg by ity of acid/herb 09:29: mouth 2 [place] [address] (two) Medical (VITAMIN D3 times Branch COMPLETE daily. ORAL) multivit 0 Yes Take by Univer s with 3-07 mouth ity of minerals/deborah 09:29: daily. [place] 11 Medical (MULTIVITAM Branch IN 50 PLUS ORAL) gluc Yes Take by [facility] villareal/chondro 3-07 mouth 2 ity of villareal A/vit 09:29: (two) [place] C/Mn 11 times Medical (GLUCOSAMIN daily. Branch E 1500 COMPLEX ORAL) SERTraline Yes 50mg Take 50 mg U nivers 50 mg 3-07 by mouth ity of tablet 09:29: daily. [address] Branch montelukast Yes 10mg Take 10 mg Univers 10 mg 3-07 by mouth ity of tablet 09:29: daily. [address] Branch busPIRone Yes 10mg Take 10 mg Un jose carlos 10 mg 3-07 by mouth ity of tablet 09:29: as needed. [place] [address] Medical Branch levothyroxi Yes 100ug Take 100 U nivers ne 100 mcg 3-07 mcg by ity of tablet 09:29: mouth daily. Medical Branch mv-mn/iron/ 0 Yes 50ug Take 50 Uni vers folic 3-07 mcg by ity of acid/herb 09:29: mouth 2 [place] 190 [address] (two) Medical (VITAMIN D3 times Branch COMPLETE daily. ORAL) multivit 0 Yes Take by Univer s with 3-07 mouth ity of minerals/deborah 09:29: daily. [place] 11 Medical (MULTIVITAM Branch IN 50 PLUS ORAL) gluc 2021-0 Yes Take by Univers villareal/chondro 3-07 mouth 2 ity of villareal A/vit 09:29: (two) [place] C/Mn 11 times Medical (GLUCOSAMIN daily. Branch E 1500 COMPLEX ORAL) SERTraline 2021-0 Yes 50mg Take 50 mg U nivers 50 mg 3-07 by mouth ity of tablet 09:29: daily. [place] [address] Medical Branch montelukast 2021-0 Yes 10mg Take 10 mg Univers 10 mg 3-07 by mouth ity of tablet 09:29: daily. [address] Branch busPIRone 2021-0 Yes 10mg Take 10 mg Un jose carlos 10 mg 3-07 by mouth ity of tablet 09:29: as needed. [address] Branch levothyroxi 2021-0 Yes 100ug Take 100 U nivers ne 100 mcg 3-07 mcg by ity of tablet 09:29: mouth [place] [address] daily. Medical Branch mv-mn/iron/ 2021-0 Yes 50ug Take 50 Uni vers folic 3-07 mcg by ity of acid/herb 09:29: mouth 2 [place] [facility] 11 (two) Medical (VITAMIN D3 times Branch COMPLETE daily. ORAL) multivit 2021-0 Yes Take by Univer s with 3-07 mouth ity of minerals/deborah 09:29: daily. [place] 11 Medical (MULTIVITAM Branch IN 50 PLUS ORAL) gluc 2021-0 Yes Take by [facility] villareal/chondro 3-07 mouth 2 ity of villareal A/vit 09:29: (two) [place] C/Dc 11 times Medical (GLUCOSAMIN daily. Branch E 1500 COMPLEX ORAL) SERTraline 2021-0 Yes 50mg Take 50 mg U nivers 50 mg 3-07 by mouth ity of tablet 09:29: daily. [address] Branch montelukast 2021-0 Yes 10mg Take 10 mg Univers 10 mg 3-07 by mouth ity of tablet 09:29: daily. [address] Branch busPIRone 2021-0 Yes 10mg Take 10 mg Un jose carlos 10 mg 3-07 by mouth ity of tablet 09:29: as needed. [address] Branch levothyroxi 2021-0 Yes 100ug Take 100 U nivers ne 100 mcg 3-07 mcg by ity of tablet 09:29: mouth daily. Medical Branch mv-mn/iron/ 0 Yes 50ug Take 50 Uni vers folic 3-07 mcg by ity of acid/herb 09:29: mouth 2 [place] 190 11 (two) Medical (VITAMIN D3 times Branch COMPLETE daily. ORAL) multivit 2021-0 Yes Take by Univer s with 3-07 mouth ity of minerals/deborah 09:29: daily. [place] 11 Medical (MULTIVITAM Branch IN 50 PLUS ORAL) gluc 2021-0 Yes Take by [facility] villareal/chondro 3-07 mouth 2 ity of villareal A/vit 09:29: (two) [place] C/Mn 11 times Medical (GLUCOSAMIN daily. Branch E 1500 COMPLEX ORAL) SERTraline 0 Yes 50mg Take 50 mg U nivers 50 mg 3-07 by mouth ity of tablet 09:29: daily. [address] Branch montelukast 0 Yes 10mg Take 10 mg Univers 10 mg 3-07 by mouth ity of tablet 09:29: daily. [address] Branch busPIRone 0 Yes 10mg Take 10 mg Un jose carlos 10 mg 3-07 by mouth ity of tablet 09:29: as needed. [address] Branch levothyroxi 0 Yes 100ug Take 100 U nivers ne 100 mcg 3-07 mcg by ity of tablet 09:29: mouth [place] [address] daily. Medical Branch mv-mn/iron/ 0 Yes 50ug Take 50 Uni vers folic 3-07 mcg by ity of acid/herb 09:29: mouth 2 [place] 190 [address] (two) Medical (VITAMIN D3 times Branch COMPLETE daily. ORAL) multivit 2021-0 Yes Take by Univer s with 3-07 mouth ity of minerals/deborah 09:29: daily. [place] 11 Medical (MULTIVITAM Branch IN 50 PLUS ORAL) gluc 2021-0 Yes Take by Univers villareal/chondro 3-07 mouth 2 ity of villareal A/vit 09:29: (two) [place] C/Mn 11 times Medical (GLUCOSAMIN daily. Branch E 1500 COMPLEX ORAL) SERTraline 2021-0 Yes 50mg Take 50 mg U nivers 50 mg 3-07 by mouth ity of tablet 09:29: daily. [place] [address] Medical Branch montelukast Yes 10mg Take 10 mg Univers 10 mg 3-07 by mouth ity of tablet 09:29: daily. [place] [address] Medical Branch busPIRone 0 Yes 10mg Take 10 mg Un jose carlos 10 mg 3-07 by mouth ity of tablet 09:29: as needed. [place] [address] Medical Branch levothyroxi Yes 100ug Take 100 U nivers ne 100 mcg 3-07 mcg by ity of tablet 09:29: mouth daily. Medical Branch mv-mn/iron/ 0 Yes 50ug Take 50 Uni vers folic 3-07 mcg by ity of acid/herb 09:29: mouth 2 [place] 190 [address] (two) Medical (VITAMIN D3 times Branch COMPLETE daily. ORAL) multivit 0 Yes Take by Univer s with 3-07 mouth ity of minerals/deborah 09:29: daily. [place] 11 Medical (MULTIVITAM Branch IN 50 PLUS ORAL) gluc Yes Take by Univers villareal/chondro 3-07 mouth 2 ity of villareal A/vit 09:29: (two) [place] C/Mn 11 times Medical (GLUCOSAMIN daily. Branch E 1500 COMPLEX ORAL) SERTraline Yes 50mg Take 50 mg U nivers 50 mg 3-07 by mouth ity of tablet 09:29: daily. [address] Branch montelukast Yes 10mg Take 10 mg Univers 10 mg 3-07 by mouth ity of tablet 09:29: daily. [address] Branch busPIRone Yes 10mg Take 10 mg Un jose carlos 10 mg 3-07 by mouth ity of tablet 09:29: as needed. [place] [address] Medical Branch levothyroxi Yes 100ug Take 100 U nivers ne 100 mcg 3-07 mcg by ity of tablet 09:29: mouth [place] [address] daily. Medical Branch mv-mn/iron/ 0 Yes 50ug Take 50 Uni vers folic 3-07 mcg by ity of acid/herb 09:29: mouth 2 [place] 190 11 (two) Medical (VITAMIN D3 times Branch COMPLETE daily. ORAL) multivit 0 Yes Take by Univer s with 3-07 mouth ity of minerals/deborah 09:29: daily. [place] 11 Medical (MULTIVITAM Branch IN 50 PLUS ORAL) gluc 2021-0 Yes Take by Univers villareal/chondro 3-07 mouth 2 ity of villareal A/vit 09:29: (two) [place] C/Mn 11 times Medical (GLUCOSAMIN daily. Branch E 1500 COMPLEX ORAL) SERTraline 2021-0 Yes 50mg Take 50 mg U nivers 50 mg 3-07 by mouth ity of tablet 09:29: daily. [place] [address] Medical Branch montelukast 2021-0 Yes 10mg Take 10 mg Univers 10 mg 3-07 by mouth ity of tablet 09:29: daily. [address] Branch busPIRone 2021-0 Yes 10mg Take 10 mg Un jose carlos 10 mg 3-07 by mouth ity of tablet 09:29: as needed. [address] Branch levothyroxi 2021-0 Yes 100ug Take 100 U nivers ne 100 mcg 3-07 mcg by ity of tablet 09:29: mouth [place] [address] daily. Medical Branch mv-mn/iron/ 2021-0 Yes 50ug Take 50 Uni vers folic 3-07 mcg by ity of acid/herb 09:29: mouth 2 [place] [address] (two) Medical (VITAMIN D3 times Branch COMPLETE daily. ORAL) multivit 0 Yes Take by [facility] s with 3-07 mouth ity of minerals/deborah 09:29: daily. [place] 11 Medical (MULTIVITAM Branch IN 50 PLUS ORAL) gluc 0 Yes Take by Univers villareal/chondro 3-07 mouth 2 ity of villareal A/vit 09:29: (two) [place] C/Dc 11 times Medical (GLUCOSAMIN daily. Branch E 1500 COMPLEX ORAL) SERTraline 2021-0 Yes 50mg Take 50 mg U nivers 50 mg 3-07 by mouth ity of tablet 09:29: daily. [address] Branch montelukast 2021-0 Yes 10mg Take 10 mg Univers 10 mg 3-07 by mouth ity of tablet 09:29: daily. [address] Branch busPIRone 2021-0 Yes 10mg Take 10 mg Un jose carlos 10 mg 3-07 by mouth ity of tablet 09:29: as needed. [address] Branch levothyroxi 2021-0 Yes 100ug Take 100 U nivers ne 100 mcg 3-07 mcg by ity of tablet 09:29: mouth [place] 11 daily. Medical Branch mv-mn/iron/ 0 Yes 50ug Take 50 Uni vers folic 3-07 mcg by ity of acid/herb 09:29: mouth 2 [place] 190 11 (two) Medical (VITAMIN D3 times Branch COMPLETE daily. ORAL) multivit Yes Take by Univer s with 3-07 mouth ity of minerals/deborah 09:29: [place] [facility] (MULTIVITAM Branch IN 50 PLUS ORAL) gluc Yes Take by Univers villareal/chondro 3-07 mouth 2 ity of villareal A/vit 09:29: (two) [place] C/Mn 11 times Medical (GLUCOSAMIN daily. Branch E 1500 COMPLEX ORAL) lisinopriL Yes [id number] 20mg Take 1 U nivers (PRINIVIL) 1-26 tablet by ity of 20 mg 00:00: mouth 2 [place] tablet 00 (two) Medical times Branch daily. lisinopriL 2021- No [id number] 20mg Take 1 Univers (PRINIVIL) 1-26 04-21 tablet by ity of 20 mg 00:00: 00:00 mouth 2 [place] tablet 00 :00 (two) Medical times Branch daily. atorvastati Yes 10mg Take 10 mg Univers n 10 mg 1-13 by mouth ity of tablet 15:50: at [place] [address] bedtime. Medical Branch cyclobenzap Yes 10mg Take 10 mg Univers rine 10 mg 1-13 by mouth 3 ity of tablet 15:50: (three) [place] [address] times Medical daily. Branch omeprazole 0 Yes 20mg Take 20 mg U nivers 20 mg 1-13 by mouth ity of capsule 15:50: daily. [place] [address] Medical Branch triamcinolo Yes Apply to Un jose carlos ne 0.1 % 1-13 area(s) 3 ity of lotion 15:50: (three) [place] [address] times Medical daily. Branch atorvastati 0 Yes 10mg Take 10 mg Univers n 10 mg 1-13 by mouth ity of tablet 15:50: at [place] [address] bedtime. Medical Branch cyclobenzap 0 Yes 10mg Take 10 mg Univers rine 10 mg 1-13 by mouth 3 ity of tablet 15:50: (three) [place] 32 times Medical daily. Branch omeprazole 2-0 Yes 20mg Take 20 mg U nivers 20 mg 1-13 by mouth ity of capsule 15:50: daily. [place] [address] Medical [facility] 2021-0 Yes Apply to Un jose carlos ne 0.1 % 1-13 area(s) 3 ity of lotion 15:50: (three) [place] [address] times Medical daily. Branch atorvastati 2-0 Yes 10mg Take 10 mg Univers n 10 mg 1-13 by mouth ity of tablet 15:50: at [place] [address] bedtime. Medical Branch cyclobenzap 2021-0 Yes 10mg Take 10 mg Univers rine 10 mg 1-13 by mouth 3 ity of tablet 15:50: (three) [place] [address] times Medical daily. Branch omeprazole 2-0 Yes 20mg Take 20 mg U nivers 20 mg 1-13 by mouth ity of capsule 15:50: daily. [place] [address] Medical [facility] 2021-0 Yes Apply to Un jose carlos ne 0.1 % 1-13 area(s) 3 ity of lotion 15:50: (three) [place] [address] times Medical daily. Branch atorvastati 2-0 Yes 10mg Take 10 mg Univers n 10 mg 1-13 by mouth ity of tablet 15:50: at [place] [address] bedtime. Medical Branch cyclobenzap 2021-0 Yes 10mg Take 10 mg Univers rine 10 mg 1-13 by mouth 3 ity of tablet 15:50: (three) [place] [address] times Medical daily. Branch omeprazole 2-0 Yes 20mg Take 20 mg U nivers 20 mg 1-13 by mouth ity of capsule 15:50: daily. [address] 2021-0 Yes Apply to Un jose carlos ne 0.1 % 1-13 area(s) 3 ity of lotion 15:50: (three) [place] [address] times Medical daily. Branch atorvastati 2-0 Yes 10mg Take 10 mg Univers n 10 mg 1-13 by mouth ity of tablet 15:50: at [place] [address] bedtime. Medical Branch cyclobenzap 2-0 Yes 10mg Take 10 mg Univers rine 10 mg 1-13 by mouth 3 ity of tablet 15:50: (three) [place] [address] times Medical daily. Branch omeprazole 2021-0 Yes 20mg Take 20 mg U nivers 20 mg 1-13 by mouth ity of capsule 15:50: daily. [place] [address] Medical [facility] Yes Apply to Un jose carlos ne 0.1 % 1-13 area(s) 3 ity of lotion 15:50: (three) [place] [address] times Medical daily. Branch atorvastati 2021-0 Yes 10mg Take 10 mg Univers n 10 mg 1-13 by mouth ity of tablet 15:50: at [place] [address] bedtime. Medical Branch cyclobenzap 2021-0 Yes 10mg Take 10 mg Univers rine 10 mg 1-13 by mouth 3 ity of tablet 15:50: (three) [place] [address] times Medical daily. Branch omeprazole 2021-0 Yes 20mg Take 20 mg U nivers 20 mg 1-13 by mouth ity of capsule 15:50: daily. [address] Yes Apply to Un jose carlos ne 0.1 % 1-13 area(s) 3 ity of lotion 15:50: (three) [place] [address] times Medical daily. Branch atorvastati 2021-0 Yes 10mg Take 10 mg Univers n 10 mg 1-13 by mouth ity of tablet 15:50: at [place] [address] bedtime. Medical Branch cyclobenzap 2021-0 Yes 10mg Take 10 mg Univers rine 10 mg 1-13 by mouth 3 ity of tablet 15:50: (three) [place] [address] times Medical daily. Branch omeprazole 2021-0 Yes 20mg Take 20 mg U nivers 20 mg 1-13 by mouth ity of capsule 15:50: daily. [address] Yes Apply to Un jose carlos ne 0.1 % 1-13 area(s) 3 ity of lotion 15:50: (three) [place] [address] times Medical daily. Branch cyclobenzap 2021-0 Yes 10mg Take 10 mg Univers rine 10 mg 1-13 by mouth 3 ity of tablet 15:50: (three) [place] [address] times Medical daily. Branch omeprazole 2-0 Yes 20mg Take 20 mg U nivers 20 mg 1-13 by mouth ity of capsule 15:50: daily. [address] 2022-0 Yes Apply to Un jose carlos ne 0.1 % 1-13 area(s) 3 ity of lotion 15:50: (three) [place] 32 times Medical daily. Branch cyclobenzap 2021-0 Yes 10mg Take 10 mg Univers rine 10 mg 1-13 by mouth 3 ity of tablet 15:50: (three) [place] 32 times Medical daily. Branch omeprazole 2021-0 Yes 20mg Take 20 mg U nivers 20 mg 1-13 by mouth ity of capsule 15:50: daily. [address] [facility] Yes Apply to Un jose carlos ne 0.1 % 1-13 area(s) 3 ity of lotion 15:50: (three) [place] 32 times Medical daily. Branch cyclobenzap 2021-0 Yes 10mg Take 10 mg Univers rine 10 mg 1-13 by mouth 3 ity of tablet 15:50: (three) [place] 32 times Medical daily. Branch omeprazole 2021-0 Yes 20mg Take 20 mg U nivers 20 mg 1-13 by mouth ity of capsule 15:50: daily. [address] [facility] Yes Apply to Un jose carlos ne 0.1 % 1-13 area(s) 3 ity of lotion 15:50: (three) [place] 32 times Medical daily. Branch cyclobenzap 2021-0 Yes 10mg Take 10 mg Univers rine 10 mg 1-13 by mouth 3 ity of tablet 15:50: (three) [place] 32 times Medical daily. Branch omeprazole 2021-0 Yes 20mg Take 20 mg U nivers 20 mg 1-13 by mouth ity of capsule 15:50: daily. [address] Branch [place] Yes Apply to Un jose carlos ne 0.1 % 1-13 area(s) 3 ity of lotion 15:50: (three) [place] 32 times Medical daily. Branch cyclobenzap 2021-0 Yes 10mg Take 10 mg Univers rine 10 mg 1-13 by mouth 3 ity of tablet 15:50: (three) [place] 32 times Medical daily. Branch omeprazole 2021-0 Yes 20mg Take 20 mg U nivers 20 mg 1-13 by mouth ity of capsule 15:50: daily. [address] [facility] Yes Apply to Un jose carlos ne 0.1 % 1-13 area(s) 3 ity of lotion 15:50: (three) [place] 32 times Medical daily. Branch cyclobenzap 2021-0 Yes 10mg Take 10 mg Univers rine 10 mg 1-13 by mouth 3 ity of tablet 15:50: (three) [place] 32 times Medical daily. Branch omeprazole 2021-0 Yes 20mg Take 20 mg U nivers 20 mg 1-13 by mouth ity of capsule 15:50: daily. [address] 0 Yes Apply to Un jose carlos ne 0.1 % 1-13 area(s) 3 ity of lotion 15:50: (three) [place] 32 times Medical daily. Branch cyclobenzap 2021-0 Yes 10mg Take 10 mg Univers rine 10 mg 1-13 by mouth 3 ity of tablet 15:50: (three) [place] 32 times Medical daily. Branch omeprazole 2021-0 Yes 20mg Take 20 mg U nivers 20 mg 1-13 by mouth ity of capsule 15:50: daily. [address] Yes Apply to U nivers ne 0.1 % 1-13 area(s) 3 ity of lotion 15:50: (three) [place] 32 times Medical daily. Branch cyclobenzap 2021-0 Yes 10mg Take 10 mg Univers rine 10 mg 1-13 by mouth 3 ity of tablet 15:50: (three) [place] 32 times Medical daily. Branch omeprazole 2021-0 Yes 20mg Take 20 mg U nivers 20 mg 1-13 by mouth ity of capsule 15:50: daily. [address] Yes Apply to Un jose carlos ne 0.1 % 1-13 area(s) 3 ity of lotion 15:50: (three) [place] 32 times Medical daily. Branch cyclobenzap 2021-0 Yes 10mg Take 10 mg Univers rine 10 mg 1-13 by mouth 3 ity of tablet 15:50: (three) [place] 32 times Medical daily. Branch omeprazole 2021-0 Yes 20mg Take 20 mg U nivers 20 mg 1-13 by mouth ity of capsule 15:50: daily. [address] 0 Yes Apply to Un jose carlos ne 0.1 % 1-13 area(s) 3 ity of lotion 15:50: (three) [place] 32 times Medical daily. Branch cyclobenzap 2021-0 Yes 10mg Take 10 mg Univers rine 10 mg 1-13 by mouth 3 ity of tablet 15:50: (three) [place] 32 times Medical daily. Branch omeprazole 2021-0 Yes 20mg Take 20 mg U nivers 20 mg 1-13 by mouth ity of capsule 15:50: daily. [address] Yes Apply to Un jose carlos ne 0.1 % 1-13 area(s) 3 ity of lotion 15:50: (three) [place] 32 times Medical daily. Branch cyclobenzap 2021-0 Yes 10mg Take 10 mg Univers rine 10 mg 1-13 by mouth 3 ity of tablet 15:50: (three) [place] 32 times Medical daily. Branch omeprazole 2021-0 Yes 20mg Take 20 mg U nivers 20 mg 1-13 by mouth ity of capsule 15:50: daily. [address] Yes Apply to Un jose carlos ne 0.1 % 1-13 area(s) 3 ity of lotion 15:50: (three) [place] 32 times Medical daily. Branch cyclobenzap 2021-0 Yes 10mg Take 10 mg Univers rine 10 mg 1-13 by mouth 3 ity of tablet 15:50: (three) [place] 32 times Medical daily. Branch omeprazole 2021-0 Yes 20mg Take 20 mg U nivers 20 mg 1-13 by mouth ity of capsule 15:50: daily. [address] Yes Apply to Un jose carlos ne 0.1 % 1-13 area(s) 3 ity of lotion 15:50: (three) [place] 32 times Medical daily. Branch cyclobenzap 2021-0 Yes 10mg Take 10 mg Univers rine 10 mg 1-13 by mouth 3 ity of tablet 15:50: (three) [place] 32 times Medical daily. Branch omeprazole 2021-0 Yes 20mg Take 20 mg U nivers 20 mg 1-13 by mouth ity of capsule 15:50: daily. [address] Yes Apply to Un jose carlos ne 0.1 % 1-13 area(s) 3 ity of lotion 15:50: (three) [place] 32 times Medical daily. Branch cyclobenzap Yes 10mg Take 10 mg Univers rine 10 mg 13 by mouth 3 ity of tablet 15:50: (three) [place] [place] [id number] times Medical daily. Branch omeprazole Yes 20mg Take 20 mg U nivers 20 mg -13 by mouth ity of capsule 15:50: daily. [address] Branch triamcinolo Yes Apply to Un jose carlos ne 0.1 % 08-08 area(s) 3 ity of lotion 15:50: (three) [place] 32 times Medical daily. Branch ZyrTEC ZyrTEC Yes Raffaele not Common Galvan defined [facility] Flonase Flonase Yes Raffaele not Common Galvan defined [facility] Guaifenesin Guaifenesin Yes Raffaele not Common -Codeine -Codeine Galvan defined [facility] Low-Dose Low-Dose Yes Raffaele not Comm on Aspirin Aspirin Galvan defined [facility] Cyclobenzap Cyclobenzap Yes Raffaele not Common rine HCl rine HCl Galvan defined [facility] Lisinopril Lisinopril Yes Raffaele not Common Galvan defined [facility] Tramadol Tramadol Yes Raffaele not Comm on HCl HCl Galvan defined [facility] Atorvastati Atorvastati Yes Raffaele not Common n Calcium n Calcium Galvan defined [facility] Omeprazole Omeprazole Yes Raffaele not Common Galvan defined [facility] Vitamin D Vitamin D Yes Raffaele not Co mmon Galvan defined [facility] Oseltamivir Oseltamivir Yes Raffaele not Common Phosphate Phosphate Galvan defined [facility] Azithromyci Azithromyci Yes Raffaele not Common n n Galvan defined [facility] MethylPREDN MethylPREDN Yes Raffaele not Common ISolone ISolone Galvan defined [facility] Duexis Duexis Yes Raffaele not Common Gavlan defined [facility] Levothyroxi Levothyroxi Yes Raffaele not Common ne Sodium ne Sodium Galvan defined Sp [facility] Montelukast Montelukast Yes Raffaele not Common Sodium Sodium Galvan defined [facility] Glucosamine Glucosamine Yes Raffaele not Common Galvan defined [facility] Omeprazole Omeprazole No Omeprazole Oseltamivir Oseltamivir No Oseltamivi Phosphate Phosphate r Phosphate Azithromyci Azithromyci No Azithromyc n n in Low-Dose Low-Dose No Low-Dose Aspirin Aspirin Aspirin MethylPREDN MethylPREDN No MethylPRED ISolone ISolone NISolone Glucosamine Glucosamine No Glucosamin e Tramadol Tramadol No Tramadol HCl HCl HCl Duexis Duexis No Duexis Flonase Flonase No Flonase Levothyroxi Levothyroxi No Levothyrox ne Sodium ne Sodium ine Sodium Lisinopril Lisinopril No Lisinopril Cyclobenzap Cyclobenzap No Cyclobenza rine HCl rine HCl smith HCl Vitamin D Vitamin D No Vitamin D ZyrTEC ZyrTEC No ZyrTEC Atorvastati Atorvastati No Atorvastat n Calcium n Calcium in Calcium Azithromyci Azithromyci No Azithromyc n n in MethylPREDN MethylPREDN No MethylPRED ISolone ISolone NISolone Vitamin D Vitamin D No Vitamin D Duexis Duexis No Duexis Cyclobenzap Cyclobenzap No Cyclobenza rine HCl rine HCl smith HCl Tramadol Tramadol No Tramadol HCl HCl HCl Flonase Flonase No Flonase Omeprazole Omeprazole No Omeprazole Atorvastati Atorvastati No Atorvastat n Calcium n Calcium in Calcium Guaifenesin Guaifenesin No Guaifenesi -Codeine -Codeine n-Codeine ZyrTEC ZyrTEC No ZyrTEC Montelukast Montelukast No Montelukas Sodium Sodium t Sodium Low-Dose Low-Dose No Low-Dose Aspirin Aspirin Aspirin Oseltamivir Oseltamivir No Oseltamivi Phosphate Phosphate r Phosphate Lisinopril Lisinopril No Lisinopril Glucosamine Glucosamine No Glucosamin e Levothyroxi Levothyroxi No Levothyrox ne Sodium ne Sodium ine Sodium Guaifenesin Guaifenesin No Guaifenesi -Codeine -Codeine n-Codeine Montelukast Montelukast No Montelukas Sodium Sodium t Sodium Vital Signs Vital Name Observation Time Observation Value Comments Source Systolic blood 2022-09-30 15:37:00 146 mm[Hg] Univer sity of pressure [facility] Diastolic blood 2022-09-30 15:37:00 90 mm[Hg] Unive rsity of [facility] Heart rate 2022-09-30 15:37:00 84 /min Universi ty of [facility] Oxygen saturation in 2022-09-30 15:37:00 97 /min University of Arterial blood by [facility] Pulse oximetry Branch Respiratory rate 2022-09-30 15:32:00 19 /min Univ ersity of [facility] Body height 2022-09-30 15:32:00 185.4 cm Universi ty of [facility] Body weight 2022-09-30 15:32:00 106.142 kg Universi ty of [facility] BMI 2022-09-30 15:32:00 30.87 kg/m2 Universi ty [facility] Systolic blood 2021-09-30 15:28:00 134 mm[Hg] Univer sity of [facility] Diastolic blood 2021-09-30 15:28:00 86 mm[Hg] Unive rsity of [facility] Heart rate 2021-09-30 15:28:00 66 /min Universi ty of [place] [facility] Body weight 2021-09-30 15:28:00 102.541 kg Universi ty of [place] [facility] BMI 2021-09-30 15:28:00 28.26 kg/m2 Universi ty [facility] Oxygen saturation in 2021-09-30 15:28:00 99 /min University Arterial blood by [facility] Pulse oximetry Branch height 2020-04-20 09:00:00 75 [in_i] [facility] weight 2020-04-20 09:00:00 247 [lb_av] [facility] bmi 2020-04-20 09:00:00 30.87 kg/m2 Common S [facility] blood pressure 2020-04-20 09:00:00 136 mm[Hg] Common [facility] - systolic [facility] blood pressure 2020-04-20 09:00:00 84 mm[Hg] Common [facility] - diastolic [facility] height 2020-04-12 13:15:00 75 [in_i] [facility] weight 2020-04-12 13:15:00 244 [lb_av] Common S [facility] bmi 2020-04-12 13:15:00 30.49 kg/m2 Common S pirit - [facility] blood pressure 2020-04-12 13:15:00 138 mm[Hg] Common [facility] - systolic [facility] blood pressure 2020-04-12 13:15:00 84 mm[Hg] Common [facility] - diastolic [facility] Procedures Procedure Date / Time Performing Clinician Source Performed MEDICAL RELEASE/CLEARANCE 2023-02-02 05:01:00 Doctor Gay, [facility] FORMS [facility] [facility] NM MYOCARDIUM PERFUSION 2023-01-29 16:04:[address] [facility] STRESS AND REST Medical Zach[place] NM MYOCARDIUM PERFUSION 2023-01-29 16:04:[address] [facility] STRESS AND REST Medical [place] NM MYOCARDIUM PERFUSION 2023-01-29 16:04:[address] [facility] STRESS AND REST Medical [place] NM MYOCARDIUM PERFUSION 2023-01-29 16:04:[address] [facility] STRESS AND REST Medical [place] INSURANCE CORRESPONDENCE 2023-01-14 05:01:[address] [facility] [facility] EXTERNAL PROVIDER - ADC 2022-11-07 05:01:00 Doctor Deidra [facility] CARDIOLOGY [facility] [facility] HB ECG ROUTINE & RHYTHM 2022-09-30 15:30:49 Duyen Stubbs [facility] ASSIGNMENT OF BENEFITS 2022-09-30 15:17:02 Doctor Deidra [facility] [facility] MEDICATION CORRESPONDENCE 2022-02-19 05:01:[address] [facility] [facility] Encounters Start End Encounter Admission Attending Care Care Encounter Source Date/Time Date/Time Type Type Clinicians Facility Department ID 2023-04-01 Outpatient STLMLC STLMLC [id number] Common 11:55:00 [id number] [facility] 2022-09-22 Outpatient STLMLC STLMLC [id number] Common 11:29:00 [id number] [facility] 2022-09-17 Outpatient STLMLC STLMLC [id number] Common 09:45:01 [id number] [facility] 2021-08-21 Outpatient STLMLC STLMLC [id number] Common 11:42:25 [id number] [facility] 2021-08-21 Outpatient STLMLC STLMLC [id number] Common 11:39:03 [id number] [facility] 2023-09-30 2023-09-30 [facility] [id number] Univers 09:30:00 09:30:00 SENDIL ity of [facility] 2023-02-02 2023-02-02 [facility] [id number] Univers 00:00:00 00:00:00 Sendmaria de jesus MAYS [id number] ity of [place] [facility] [phone] Nv dical [facility] 059 [facility] 2023-02-02 2023-02-02 Orders Doctor JACOBO 1.2.840.114 [id number] Univers 00:00:00 00:00:00 Only Unassigned, JD 350.1.13.10 ity of [place] [facility] 4.2.7.2.686 Edward as [phone] [facility] 009 Branch 2023-01-29 2023-01-29 [facility] 1.2.840.114 [id number] Univers 08:20:22 23:59:00 Encounter Sendmaria de jesus MAYS 350.1.13.10 ity of [place] [id number] [facility] 805 Branch 2023-01-29 2023-01-29 [facility] 1.2.840.114 [id number] Univers 08:20:13 23:59:00 Encounter Sendil Araceli MAYS 350.1.13.10 ity of [facility] 4.2.7.2.686 [facility] [phone] [place] [id number] Branch 2023-01-29 2023-01-29 [facility] 1.2.840.114 [id number] Univers 08:20:02 23:59:00 Encounter Sendil Araceli MAYS 350.1.13.10 ity of [facility] 4.2.7.2.686 [facility] [phone] [address] 2023-01-29 2023-01-29 Outpatient R [facility] [id number] Univers 08:19:51 08:19:51 SENDIL ity of [facility] 2023-01-29 2023-01-29 [facility] 1.2.840.114 [id number] Univers 08:19:51 08:19:51 Encounter Duyen MAYS 350.1.13.10 ity of [facility] 4.2.7.2.686 [facility] [phone] [facility] 805 Branch 2023-01-14 2023-01-14 Orders Doctor JACOBO 1.2.840.114 [id number] Univers 00:00:00 00:00:00 Only Unassigned, JD 350.1.13.10 ity of [place] [facility] 4.2.7.2.686 Edward as [phone] [place] [address] Branch 2022-11-07 2022-11-07 Orders Doctor JACOBO 1.2.840.114 [id number] Univers 00:00:00 00:00:00 Only Unassigned, JD 350.1.13.10 ity of [place] [facility] 4.2.7.2.686 Edward as [id number] [place] [address] Branch 2022-11-03 2022-11-03 [facility] [id number] Univers 00:00:00 00:00:00 Sendmaria de jesus MAYS 350.1.13.10 ity of [facility] 4.2.7.2.686 [facility] PROFESSIO [phone] [address] 2022-10-30 2022-10-30 Telephone [facility] [id number] Univers 00:00:00 00:00:00 Duyen MAYS 350.1.13.10 ity of [place] [phone] [address] 2022-09-30 2022-09-30 [facility] [id number] Univers 09:30:00 10:10:04 SENDIL ity of [facility] 2022-09-30 2022-09-30 Office [facility] 1.2.840.114 [id number] Univers 09:30:00 10:10:04 Visit Duyen MAYS 350.1.13.10 ity of [place] [id number] [address] 2022-09-30 2022-09-30 Orders Doctor JACOBO 1.2.840.114 [id number] Univers 00:00:00 00:00:00 Only Unassigned, JD 350.1.13.10 ity of [place] [facility] 4.2.7.2.686 Edward as [phone] [address] 2022-09-30 2022-09-30 Refill [facility] 1.2.840.114 [id number] Univers 00:00:00 00:00:00 Duyen MAYS 350.1.13.10 ity of [place] [phone] [address] 2022-02-19 2022-02-19 Orders Doctor JACOBO 1.2.840.114 [id number] Univers 00:00:00 00:00:00 Only Unassigned, JD 350.1.13.10 ity of [place] [facility] 4.2.7.2.686 Edward as [phone] [address] 2022-02-18 2022-02-18 Telephone [facility] [id number] [id number] Univers 00:00:00 00:00:00 Duyen MAYS 350.1.13.10 ity of [facility] 4.2.7.[place] [phone] Nv dicor NAL [address] [place] [address] 2022-02-17 2022-02-17 Refill Enoc [facility] 1.2.840.114 [id number] Univers 00:00:00 00:00:00 Duyen MAYS 350.1.13.10 ity of [facility] 4.2.7.2.[place] [id number] [address] 2021-11-22 2021-11-22 Refill Enoc [facility] 1.2.840.114 [id number] Univers 00:00:00 00:00:00 Duyen MAYS 350.1.13.10 ity of [facility] 4[place]2.7.2.[place] [id number] [address] 2021-11-10 2021-11-10 Refill Enoc [facility] 1.2.840.114 [id number] Univers 00:00:00 00:00:00 Duyen MAYS 350.1.13.10 ity of [facility] 4.2.7.2.[place] [id number] [address] 2021-09-30 2021-09-30 Outpatient R ENOC LAWANDY [facility] [id number] Univers 09:30:00 10:02:01 SENDIL ity of [facility] 2021-09-30 2021-09-30 Office Enoc LAWANDY 1.2.840.114 [id number] Univers 09:30:00 10:02:01 Visit Duyen MAYS 350.1.13.10 ity of [facility] 4.2.7.2.[place] [id number] [address] 2021-09-25 2021-09-25 Patient Enoc [facility] 1.2.840.114 [id number] Univers 00:00:00 00:00:00 Secure Msg Duyen MAYS 350.1.13.10 ity of [facility] 4.2.7.2.[place] [phone] Nv dical NAL 059 [facility] 2021-09-23 2021-09-23 Case JACOBO Stubbs 1.2.840.114 [id number] Univers 00:00:00 00:00:00 Management Duyen MILES 350.1.13.10 ity of HOSPITAL 4.2.7.2.686 Edward as [phone] [facility] 008 Zachary 2021-09-23 2021-09-23 Orders Doctor JACOBO 1.2.840.114 [id number] Univers 00:00:00 00:00:00 Only Unassigned, JD 350.1.13.10 ity of [place] [facility] 4.2.7.2.686 Edward as [phone] [facility] 009 Zachary 2021-09-13 2021-09-13 Orders Doctor JACOBO 1.2.840.114 [id number] Univers 00:00:00 00:00:00 Only Unassigned, JD 350.1.13.10 ity of [place] [facility] 4.2.7.2.686 Edward as [phone] [facility] 009 Zachary 2021-09-07 2021-09-07 Orders Doctor CENTENO 1.2.840.114 [id number] Univers 00:00:00 00:00:00 Only Unassigned, JD 350.1.13.10 ity of [place] [facility] 4.2.7.2.686 Edward as [phone] [facility] 009 Zachary 2021-08-26 2021-08-26 Telephone EZIO Stubbs 1.2.115.550 [id number] Univers 00:00:00 00:00:00 Duyen MAYS 350.1.13.10 ity of [facility] 4.2.7.2.[place] [id number] Nv dicor NAL 9 [facility] 2021-08-19 2021-08-19 Patient EZIO Stubbs 1.2.840.114 [id number] Univers 00:00:00 00:00:00 Secure Msg Duyen MAYS 350.1.13.10 ity of [place] [phone] Nv dical NAL 059 [facility] 2021-08-18 2021-08-18 [facility] 1.2.840.114 [id number] Univers 00:00:00 00:00:00 Secure Msg Duyen MAYS 350.1.13.10 ity of [place] [id number] [facility] NAL [address] [place] [address] 2021-08-16 2021-08-16 [facility] [id number] Univers 14:50:51 23:59:00 SENDIL ity of [facility] 2021-08-16 2021-08-16 [facility] 1.2.840.114 [id number] Univers 14:50:51 23:59:00 Encounter Duyen MAYS 350.1.13.10 ity of [place] [id number] [address] 2021-08-16 2021-08-16 [facility] 1.2.840.114 [id number] Univers 14:49:47 14:49:47 Encounter Duyen MAYS 350.1.13.10 ity of [place] [phone] Nv dical NAL 843 [facility] 2021-08-08 2021-08-08 [facility] 1.2.840.114 [id number] Univers 15:00:00 16:41:25 Visit Duyen MAYS 350.1.13.10 ity of [place] [id number] Nv dical NAL 059 [facility] 2021-08-08 2021-08-08 [facility]patient [facility] [id number] Univers 15:00:00 16:41:25 SENDIL ity [facility] 2021-08-08 2021-08-08 Outpatient R ENOC [facility] [id number] Univers 15:00:00 16:41:25 SENDIL ity [facility] 2021-08-08 2021-08-08 Orders Doctor JACOBO 1.2.840.114 [id number] Univers 00:00:00 00:00:00 Only Unassigned, JD 350.1.13.10 ity of [place] [facility] 4.2.7.2.686 Edward as [id number] [address] 2020-06-17 2020-06-17 Emergency ER [facility] [id number] [place] 17:34:00 22:10:00 ANNAMARIA [id number] [facility] 2020-04-20 2020-04-20 OFFICE STLMLC STLMLC [id number] mmon 00:00:00 00:00:00 VISIT Spirit ESTAB PT - CHI LEVEL 4 [facility] 2020-04-12 2020-04-12 (IN/ASP) STLMLC STLMLC [id number] C ommon 00:00:00 00:00:00 INJ ASP Spirit - [facility] 2020-04-04 2020-04-04 Outpatient Carlos Royal [id number] Common 10:00:00 10:00:00 t [facility] - [facility] 2020-03-15 2020-03-15 Outpatient Carlos Royal [id number] Common 09:00:00 09:00:00 t Bone Bone [facility] Spiri t [facility] Joint Joint - [facility] Results This patient has no known results.
--- NOTE | 2023-05-13 15:17 | RAD REPORT ---
EXAM DESCRIPTION: RAD - Knee Left 2 View - 05/13/2023 2:17 pm CLINICAL HISTORY: Post Op COMPARISON: No comparisons TECHNIQUE: Left knee, 3 views. FINDINGS: Sequelae of recent total knee arthroplasty. Alignment is satisfactory. Adjacent postsurgic al changes in the soft tissues with skin saqib anteriorly. No fracture, dislocation or periosteal r eaction.No joint effusion seen. IMPRESSION: Expected postoperative sequelae of left total knee arthroplasty.
[2023-05-13] MEDS ORDERED: HOME MED [FLUTICASONE 50MCG NASAL SPRAY] NAS PRN (15:30)
[2023-05-13] MEDS: METFORMIN ER 500 MG TAB PO SCH (16:43)
[2023-05-13] MEDS: CEFAZOLIN SODIUM 2 GM in NA CHLORIDE 0.9% 100 ML IVPB SCH (16:44)
[2023-05-13] MEDS: HYDROCODONE/APAP 7.5/325 MG TAB PO PRN ×2 (16:53→21:08)
--- NOTE | 2023-05-13 17:16 | P.OP ---
Preoperative diagnosis: left knee osteoarthritis Postoperative diagnosis: same Primary procedure: left total knee arthroplasty Anesthesia: general Estimated blood loss: 40 cc Specimen: left knee bone remnants Findings: see dictation Operative Technique: Indication For Procedure: Noah is a 62 year-old female presenting to my clinic with signs, symptoms and x-ray findings consistent with severe left knee osteoarthritis. I discussed with the patient at length risks and benefits associated with operative and nonoperative treatment. He had failed conservative treatment measures and had significant difficulties with ADLs secondary to his pain. We discussed operative treatment and elected to proceed with left total knee arthroplasty. He expressed understanding and elected to proceed with operative treatment. Description Of Procedure: After informed consent was obtained, the patient was identified in the preoperative holding area. The left lower extremity was marked. The patient was then taken to the PACU where he underwent a left lower extremity adductor canal block performed by Anesthesia. He was then taken to the operating room, transferred to the operating table in supine fashion, and placed under general anesthesia. The left lower extremity was then prepped and draped in usual sterile fashion. A time-out was initiated. The correct patient and procedure were confirmed and identified. The patient did receive his preoperative prophylactic antibiotics. The left lower extremity was then exsanguinated and tourniquet was inflated to 300 mmHg. Approximately 15 cm longitudinal incision was made centered over the anterior aspect of the left knee. Dissection was then taken to the extensor mechanism and a medial parapatellar arthrotomy was performed. The patella was everted and dislocated laterally and the knee was flexed in the fat pad. Medial and lateral meniscus and ACL were all excised exposing the distal femur. Excess hypertrophic synovium was also excised within the suprapatellar pouch. The patient had an MRI of his left knee preoperatively for surgical planning and creation of cutting blocks. The cutting block was then placed over the distal femur and pins were then placed. The distal femoral cutting block was then placed over the pins. An blane wing was then used to ensure proper depth cut and the distal femur was then cut. The chamfer cutting guide was then placed over the distal end of the femur. Anterior, posterior cuts as well as anterior and posterior chamfer cuts were then made again confirming proper depth of the cut using an Blane wing. Excess bone remnants were then sent to pathology for further evaluation. Next, attention was taken to the proximal tibia. A tibial jig and tibial cutting block was then placed on proximal aspect of the left tibia and locked into position. Pins were then placed and alignment guide was then used to confirm proper alignment of the cut and then coronal and sagittal planes. Once this was confirmed, the cutting jig was placed over the pins and the proximal tibia was cut. Sizing trays were then selected and size 10 mm spacer was used and there was good overall balance in flexion and extension. Next, the trial implants were then placed using the size 10 standard CR femur and a size G tibia and an 10 mm CR poly. There was overall good range of motion and good sta bility. The trial implants were then removed. The wound was then irrigated thoroughly with normal saline and the knee was then injected with 20 cc of 0.5% Marcaine both in the posterior capsule and medial and lateral gutters as well as quadriceps tendon and periosteum. The tibia was then punched. The femur was drilled. The cement was then prepared on the back table. Cement was then placed first on the tibial surface followed by size G tibia. Excess cement was removed with Novi elevators. Size 10 standard CR femur was then placed on the distal femur after cement was placed on the distal femur. Excess cement was then removed and a size 10 mm CR trial poly was then placed. The knee was held in extension as the cement hardened. Undersurface of the patella was prepared debriding osteophytes using rongeurs as well as osteophytes.. Cement was placed on the undersurface of the patella after it was cut and a size 38 patella was placed. Once the cement was hardened, the knee was ranged, there was good overall stability both in flexion, extension and as well as stability with varus and valgus stresses. Trial poly was then removed and a size 10 mm CR poly was then placed and locked into position. The knee was then ranged again. There was good overall range of motion both for flexion and extension with good stability. The wound was then irrigated again thoroughly with normal saline using pulse lavage. Tourniquet was let down. Hemostasis was achieved using Bovie electrocautery. Extensor mechanism was then approximated using a #1 Vicryl both in interrupted and running fashion. The fascia was then approximated using 0 Vicryl. Subcutaneous tissue was approximated with a 2-0 Vicryl. Skin was approximated using saqib. Sterile dressings were applied. The patient was awakened and transferred back in stable condition. Complications: None Implants: Biomet Carmen Persona 10 CR femur, G tibia, 38 patella, 10 CR poly Fluids & blood products: per anesthesia record Transferred to: Recovery Room Condition: Good
[2023-05-13 17:18] VITALS: BMI 28.5
[2023-05-13] MEDS ORDERED: MONTELUKAST 10 MG TAB PO SCH (21:00)
[2023-05-13] MEDS ORDERED: HOME MED 1 EA UNK (Cholecalciferol (Vitamin D3) [Vitamin D3] 50 MCG Capsule) PO SCH (21:00)
[2023-05-13] MEDS ORDERED: HOME MED 1 EA UNK (Lisinopril [Zestril] 40 MG Tablet) PO SCH (21:00)
[2023-05-13] MEDS ORDERED: METFORMIN HCL 500 MG PO SCH (21:00)
[2023-05-13] MEDS ORDERED: ATORVASTATIN 10 MG TAB PO SCH (21:00)
[2023-05-13] MEDS: lisinopriL 20 MG TAB PO SCH (21:05)
[2023-05-13] MEDS: VITAMIN D 1000 UNIT TAB PO SCH (21:06)
[2023-05-14] MEDS: CEFAZOLIN SODIUM 2 GM in NA CHLORIDE 0.9% 100 ML IVPB SCH ×2 (00:44→08:24)
[2023-05-14] MEDS: HYDROCODONE/APAP 7.5/325 MG TAB PO PRN ×3 (01:29→11:20)
[2023-05-14 03:11] LABS: Hematocrit 33.1 % (39.6-49.0)
[2023-05-14] MEDS: ENOXAPARIN 30 MG/0.3 ML SQ SCH ×2 (06:09→08:32)
[2023-05-14] MEDS ORDERED: LEVOTHYROXINE SOD 0.1 MG TAB PO SCH (06:30)
[2023-05-14] MEDS ORDERED: NA CHLORIDE 0.9% 0 ML ONE (07:41)
[2023-05-14] MEDS: lisinopriL 20 MG TAB PO SCH (08:25)
[2023-05-14] MEDS: VITAMIN D 1000 UNIT TAB PO SCH (08:25)
[2023-05-14] MEDS: METFORMIN ER 500 MG TAB PO SCH (08:25)
[2023-05-14 08:54] VITALS: O2SAT 94
[2023-05-14] MEDS ORDERED: HOME MED 1 EA UNK (Cetirizine Hcl [Zyrtec] 10 MG Capsule) PO SCH (09:00)
[2023-05-14] MEDS ORDERED: CELECOXIB 100 MG CAPSULE PO SCH (09:00)
[2023-05-14] MEDS ORDERED: PANTOPRAZOLE 40MG TABLET PO SCH (09:00)
[2023-05-14] MEDS ORDERED: CETIRIZINE HCL 5 MG TABLET PO SCH (09:00)
[2023-05-14] MEDS ORDERED: HOME MED 1 EA UNK (Omeprazole [Omeprazole] 20 MG Capsule.Dr) PO SCH (09:00)
[2023-05-14 14:01] VITALS: BP 140/72; TEMP 98.6
== END 2023-05-14 14:05 | disposition home health service (06) ==
LOC: OR 08:15 → 2ND 13:57
PROVIDERS: ADMIT Orthopaedic Surgery Sports Medicine; ATTEND Orthopaedic Surgery Sports Medicine
PROC: 0SRD069 Replacement of Left Knee Joint with Oxidized Zirconium on Polyethylene Synthetic Substitute, Cemented, Open Approach (ICD-10-PCS; principal; 2023-05-13 10:45)
DX: M17.12 Unilateral primary osteoarthritis, left knee (principal); M25.562 Pain in left knee
CPT/HCPCS: 36415; 71046; 80048; 82947; 85014; 85018; 85025; 85610; 85730; 88304; 88305; 88311; 93005; 94010; 97116; 97139; 97161; 97530; C1776; G0378; G0379; J0171; J1100; J1170; J1650; J2001; J2250; J2405; J2704; J3010; J3475; J7030; J7120